=== PATIENT | female | born 1940 | race Caucasian/White ===

== ENCOUNTER 2022-11-06 08:50 | Outpatient (CLI) | payer MEDICARE, OTHER, SELFPAY ==
[2022-11-06] VITALS (9 sets, daily range): BP systolic 111–138; BP diastolic 52–81; PULSE 60–83; RESP 13–21; TEMP 36.9; O2SAT 97–99; BMI 28.3
--- NOTE | 2022-11-06 09:04 | CT_ITS ---
PROCEDURE: CT GUIDED bone marrow biopsy and bone marrow aspirate of the posterior right iliac bone. DATE: November 06, 2022. INDICATION: Female, 82 years old. Chronic ITP PHYSICIAN: Papito Portillo M.D. RADIATION DOSAGE (If Supplied By Facility): CTDIvol = ( 13 ) mGy, DLP = ( 236.17 ) mGycm. Individualized dose optimization techniques were utilized. PROCEDURE: The risks, benefits, and alternatives to the procedure were explained to the patient. The specific risk of hemorrhage requiring further treatment or intervention was detailed and accepted. Follow-up instructions were discussed with the patient as well. Written informed consent was obtained. The patient was brought into the CT suite and placed in the prone position. . An appropriate entry site was identified. The overlying skin was prepped and draped in the usual sterile fashion. 1% lidocaine was administered subcutaneously for local anesthesia. Conscious sedation was performed. The patient received 2 mg of Versed and 50 mcg of fentanyl intravenously. Conscious sedation was started at 10:04 AM and terminated at 10:22 AM. The patient was independently monitored by the department nurse. Under CT guidance, a a bone marrow biopsy and bone marrow aspirate of the posterior right iliac bone were performed utilizing an 11-gauge bone marrow core biopsy kit. The specimens were then placed in the appropriate fluid and transported to the laboratory for analysis. Hemostasis was obtained. The patient tolerated the procedure well without immediate complications. CT/Biopsy/Inj or Needle Placement IMPRESSION: Successful CT guided bone marrow biopsy and aspirate of the posterior right iliac bone, as described above. The conscious sedation protocol was followed. The patient tolerated the procedure well. Electronically Signed: Papito Portillo MD at 10:53 EDT ,
[2022-11-06 09:20] LABS: Absolute Lymphocyte Count 2.41 X10^3/uL (0.83-4.51); Absolute Neutrophil Count 7.1 X10^3/uL (2.0-7.7); Basophil# 0.05 X10^3/uL; Basophil% 0.5 % (0-1); Eosinophil# 0.01 X10^3/uL; Eosinophils% 0.1 % (0-5); Hematocrit 36.7 % (37-47); Hemoglobin 12.5 g/dL (12.0-15.0); Lymphocyte # 2.41 X10^3/ul (0.83-4.51); Lymphocyte % 23.4 % (19-41); Mean Corp Hgb Conc 34.1 g/dL (32-36); Mean Corpuscular Hgb 33.5 pg (27.0-32.0); Mean Corpuscular Volume 98.4 fL (81-99); Mean Platelet Vol. 10.9 fl (6.2-12.0); Monocyte% 6.8 % (0-10); NRBC Flagged by Analyzer 0.2 % (0-5); Neutrophil # 7.09 X10^3/uL (2.7-7.7); Neutrophil % 68.6 % (47-70); POSITIVE COUNT YES; RBC Distribution Width CV 14.9 % (11.6-14.6); RBC Distribution Width SD 53.4 fl (35.1-43.9); Red Blood Count 3.73 M/mm3 (4.2-5.4); White Blood Count 10.3 K/mm3 (4.4-11.0)
[2022-11-06 09:39] LABS: Differential Indicated SCAN CRITERIA MET; Platelet Count 10 K/mm3 (150-450)
[2022-11-06] MEDS: 0.9% Saline Lock 10 ML Syringe IV (09:40)
--- NOTE | 2022-11-06 10:00 | BMB_PTH ---
PATIENT: PRATEEK HANSEN LOC: [place] U#:[id number] AGE/SX: 82/F ROOM: RE11/06/[address]: Dr. Ryan Mcfadden DO : 1940 BED: DIS: 11/06/2022 SPEC #: [id number] RECD: 11/06/22 11:14 STATUS: EVAN REVon #: [id number] GORDON: 11/06/22 10:[address]: Ryan Mcfadden DEPT: BONE MARROW RECD BY: Sandi Dodge ENTERED: 11/06/22 11:14 SP TYPE: BMB OTHR DR: Dr. Nicolas Bauman MD Tissues: A - Bone marrow, NOS B - Bone marrow, NOS C - Bone marrow, NOS Procedures: Decalcification bone/plaque Bone Marrow Aspiration Bone Marrow Core Biopsy Iron Stain Bone Marrow HEADER OPERATION: Bone marrow biopsy and aspiration PRE-OP DIAGNOSIS: Chronic refractory ITP TISSUE SUBMITTED: A - Core, B - Clot, C - Smears, and send outs (flow, cytogenetics and MDS) BONE MARROW DIAGNOSIS Bone marrow core, clot and aspirate smears: Mildly hypercellular marrow with trilineage hematopoiesis. Megakaryocytes mildly increased in number. See bone marrow study and comment. SJ:fanny 11/09/2022 COMMENT [facility] show a myeloblast population with very rare aberrant expression of CD7 is detected, representing 1% of the non-erythroid cells. Insufficient B cells are detected to adequately evaluate for clonality. The complete report is viewable in EMR. Cytogenetic studies and FISH study for MDS are pending. Clinical correlation and appropriate follow up are necessary. Case has been reviewed in consultation with Dr. Talamantes who concurs with the above diagnosis. IDC:AM BONE MARROW STUDY Slides are reviewed. CBC DATE: 11/06/22 WBC 10.3; RBC 3.73; HGB 12.5; HCT 36.7; MCV 98.4; RDW 14.9; PLTS 10,000 SEGS 68.6%; LYMPHS 23.4%; MONOS 6.8%; EOS 0.1%; BASOS 0.5%, immature granulocytes 0.6% PERIPHERAL SMEAR: Submitted. RBC: Normocytic and normochromic. WBC: Unremarkable. The WBC count is compatible to as reported above. PLTS: Markedly decreased. BONE MARROW ASPIRATE DIFFERENTIAL: Not performed ASPIRATE FINDINGS: Site: Not specified Aspicular, Hypocellular Comment: Marked hemodilution is noted. All submitted smears are examined. Rare myeloid, erythroid and megakaryocytes are noted. CORE BIOPSY FINDINGS: Site: Not specified Adequacy: Adequate Cellularity: ~60% M/E ratio: Within normal limits. Megakaryocytes: Present and mildly increased in number. Bony trabeculae: Unremarkable. Granulomas: Absent. Lymphoid aggregate: Absent. Atypical infiltrate: Absent. ASPIRATE CLOT FINDINGS: Site: Not specified Marrow particles: Not present Comment: The specimen predominantly consists of peripheral blood. Rare erythroid, myeloid and megakaryocytes are noted. SPECIAL STAINS WITH MATCHED CONTROLS: Iron: Absent Reticulin: No significant increase of reticulin fibers is noted. PAS: Highlights myeloid cells and megakaryocytes. BONE MARROW GROSS A - Received is a container labeled with the patient's name and designated bone marrow. The specimen consists of a piece of ortega bone measuring 0.3 cm in length and 0.1 cm in diameter. The specimen is totally submitted in one cassette after decalcification. B - Received labeled with the patient's name and designated bone marrow is a specimen that consists of approximately 7 ml of bloody fluid that on filtration yields multiple minute fragments of blood clots measuring in aggregate 1.0 x 0.5 x <0.1 cm. The specimen is totally submitted in one cassette. C - Also received are 16 unstained and 1 peripheral stained slides. The unstained slides are submitted for appropriate staining. Also received is one green top tube which is sent to our reference lab for flow, cytogenetics and MDS. / SJ:fanny 11/06/2022 TC:5 CPT: 79978, 90690, 06983 x2, 86331 x3, 81970 ADDENDUM ADDENDUM ADDENDUM ADDENDUM ADDENDUM ADDENDUM ADDENDUM ADDENDUM ADDENDUM ADDENDUM ADDENDUM ADDENDUM ADDENDUM ADDENDUM 11/16/2022 09:21 ADDENDUM 11/16/2022 09:21 ADDENDUM 11/16/2022 09:21 ADDENDUM 11/16/2022 09:21 ADDENDUM 11/16/2022 09:21 CYTOGENETICS REPORT FROM [facility] CYTOGENETIC RESULT: [id number]] INTERPRETATION: Normal female karyotype was observed in twenty metaphases analyzed. MDS FISH PANEL FROM [facility] FISH RESULT: Normal MDS panel INTERPRETATION: Negative Please see complete report in e-chart or EMR
[2022-11-06] MEDS: Midazolam 2 MG/2 ML Syringe IV (10:04)
[2022-11-06] MEDS: fentaNYL 100 MCG/2 ML Ampul IV (10:06)
[2022-11-06] MEDS: Lidocaine 2% (20 ml mdv) 20 ML Vial INFILT (10:16)
[2022-11-06 10:47] LABS: Differential Comment SCANNED
[2022-11-07 13:05] LABS: Pathologist Review Reviewed
[2022-11-16 09:22] LABS: Miscellaneous Lab Procedure SEE PATH REPORT; Miscellaneous Lab Procedure 2 SEE PATH REPORT; Miscellaneous Lab Procedure 3 SEE PATH REPORT
== END 2022-11-06 23:59 | disposition home or self-care (01) ==
PROVIDERS: Radiology Diagnostic Radiology; PCP Family Medicine; Referring Provider Internal Medicine Hematology & Oncology; Visit Provider Internal Medicine Hematology & Oncology
DX: D69.3 Immune thrombocytopenic purpura (principal)
CPT/HCPCS: 38222; 36415; 77012; 85025; 88305; 88311; 88313; 99156; J7050; A4216